=== PATIENT | female | born 1960 | race Caucasian/White ===

== ENCOUNTER 2024-01-13 13:57 | Outpatient (CLI) | payer OTHER, SELFPAY ==
--- NOTE | ~2024-01-13 | MR_ITS ---
EXAMINATION: MR abdomen wo/w con DATE: 01/13/2024 14:56 INDICATION: Other specified disorders of kidney. Left kidney cyst. Right abdominal pain. TECHNIQUE: Magnetic resonance imaging (MRI) of the abdomen was performed without and with 17 mL Multi Priti intravenous contrast. COMPARISON: None. FINDINGS: There is diffuse hepatic steatosis. There is a small sliding hiatal hernia. The gallbladder and splee n are normal. 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 The adrenal glands are normal. There is a 15 mm h emorrhagic cyst in left kidney. There are cysts in the kidneys measuring up to 6 mm on the left. Ther e is diverticulosis of the colon without evidence of diverticulitis. There are no dilated loops of geri wel. There are no pathologically enlarged lymph nodes. There is no free intraperitoneal fluid. IMPRESSION: 1. Benign cysts in the kidneys. Reviewed, dictated and finalized at location A.
== END 2024-01-13 13:58 ==
LOC: MICIMG 14:02
DX: N28.89 Other specified disorders of kidney and ureter (principal); N28.1 Cyst of kidney, acquired
CPT/HCPCS: 74183; A9577

== ENCOUNTER 2024-09-26 09:33 | Emergency (ER) | payer OTHER, SELFPAY ==
[2024-09-26 09:43] VITALS: BP 142/76; PULSE 57; RESP 16; TEMP 36.4; O2SAT 98
--- NOTE | 2024-09-26 11:04 | ED_ITS ---
HPI - General Adult General Chief complaint: Skin/Abscess/Foreign Body Stated complaint: Eye Pain/Rash Time Seen by Provider: 09/26/24 11:04 Source: patient Mode of arrival: ambulatory Limitations: no limitations History of Present Illness HPI narrative: 64-year-old female patient presents to the [facility] with complaints of bilateral eye redness, irritation and discharge. 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 Patient states she has been battling a slight cold/ allergies and has been taking Karen daily. Patient states she did try using some [id number] Zaditor eyedrops. Patient states she woke up this morning and feels like her eyes are more swollen, other sense to to the light, gritty, and did have some clear discharge. Denies fevers body aches or chills. Related Data Home Medications ?Medication ?Instructions ?Recorded ?Confirmed ?Last Taken ?Type Lactobacillus acidophilus 10 100 mmu cells PO DAILY 09/26/24 09/26/24 Unknown History billion cell capsule (NewFlora) albuterol sulfate 2.5 mg/3 mL 1.25 mg inhalation ONCE 09/26/24 09/26/24 Unknown History (0.083 %) solution for nebulization albuterol sulfate 90 mcg/actuation inhalation 09/26/24 Unknown History aerosol inhaler ascorbic acid (vitamin C) 500 mg mg PO 09/26/24 Unknown History capsule azelastine 137 mcg (0.1 %) nasal intranasal 09/26/24 Unknown History spray calcium 600 mg capsule mg PO 09/26/24 Unknown History cholecalciferol (vitamin D3) 25 25 mcg PO DAILY 09/26/24 09/26/24 Unknown History mcg (1,000 unit) capsule fexofenadine 180 mg tablet mg 09/26/24 Unknown History (Allergy Relief (fexofenadine)) fluticasone fur. 200 mcg-umeclid inhalation 09/26/24 Unknown History 62.5 mcg-vilant 25 mcg inhalat.powder (Trelegy Ellipta) fluticasone propionate 50 intranasal 09/26/24 Unknown History mcg/actuation nasal spray,suspension chloé root extract 15 mg chewable mg PO 09/26/24 Unknown History tablet (Advanced Herbals Chloé) propranolol 80 mg capsule,24 mg PO 09/26/24 Unknown History hr,extended release rosuvastatin 5 mg tablet mg 09/26/24 Unknown History turmeric 400 mg capsule 553 mg PO 09/26/24 Unknown History Allergies Allergy/AdvReac Type Severity Reaction Status Date / Time adhesive tape Allergy Mild Rash Verified 09/26/24 09:54 pseudoephedrine Allergy Mild Other Verified 09/26/24 09:54 meperidine AdvReac Mild Nausea Verified 09/26/24 09:54 Review of Systems Review of Systems: CONSTITUTIONAL: Denies fever, chills, or sweats. EYES: Denies visual changes, Positive bilateral eye redness, and clear discharge. ENT: Denies rhinorrhea, congestion, sore throat, or otalgia. CARDIOVASCULAR: Denies chest pain, palpitations, or edema. RESPIRATORY: Denies cough or dyspnea. GASTROINTESTINAL: Denies abdominal pain, nausea, vomiting, or diarrhea. GENITOURINARY: Denies dysuria or hematuria. SKIN: positive facial rash denies itching. MUSCULOSKELETAL: Denies back pain, joint pain, or myalgia. NEUROLOGIC: Denies headache, numbness, or weakness. PSYCHIATRIC: Denies anxiety or depression. [facility] Family History Family History Sibling Family history of thyroid disease Asthma Mother Hypertension Grandparent Family history of malignant neoplasm of bone Family history of malignant neoplasm of breast Other Diabetes mellitus Family history of malignant neoplasm of stomach Social History Social History Smoking status: Never smoker Alcohol intake: current Comments At the time of my signature I agree with nursing past medical history, surgical, social, and family history. There is no relevant family history pertinent to the presenting complaint. Exam Narrative: GENERAL: Well-appearing, well-nourished, and in no acute distress. HEAD: Normocephalic, atraumatic. EYES: PERRLA and EOM intact without limitation or complaint of pain, no periorbital soft tissue swelling ,no erythema, warmth or tenderness noted, no obvious deformity. No crusting or swelling.no active tearing or draining. positive photophobia. No nystagmus No FB or lesion on lid eversion. Corneas grossly clear, no obvious FB or hyphens/hypopyon. injection to bilateral sclera. Lids and lashes clear. ENT: Nares with erythema and edema noted bilaterally, no rhinorrhea or epistaxis. Mucous membranes moist. NECK: Supple. No lymphadenopathy CHEST: Clear to auscultation. No respiratory distress. HEART: Regular rate and rhythm. No murmur heard. Normal peripheral pulses. ABDOMEN: Soft, nontender, nondistended, normal active bowel sounds. EXTREMITIES: Normal range of motion. No edema. SKIN: Warm, dry, no obvious rash noted to the face. NEURO: No focal deficits. Alert and oriented x3. Course Course Level of Care: Express Care Visit Vital Signs Vital signs: Vital Signs Temperature 36.4 C L 09/26/24 09:43 Pulse Rate 57 L 09/26/24 09:43 Respiratory Rate 16 09/26/24 09:43 Blood Pressure 142/76 H 09/26/24 09:43 Pulse Oximetry 98 09/26/24 09:43 Temperature 36.4 C L 09/26/24 09:43 Pulse Rate 57 L 09/26/24 09:43 Respiratory Rate 16 09/26/24 09:43 Blood Pressure 142/76 H 09/26/24 09:43 Pulse Oximetry 98 09/26/24 09:43 Vital signs reviewed. The patient has been informed that they may have pre-hypertension or Hypertension based on a BP reading in the department. I recommend that the patient call the primary care provider listed on their discharge instructions or a physician of their choice this week to arrange follow up for further evaluation of possible pre-hypertension or Hypertension Medical Decision Making MDM Narrative Medical decision making narrative: Discussed with patient that we will go ahead and discharge her home with some antibiotic eyedrops for possible pinkeye. Patient should continue taking her daily antihistamine along with the Zaditor as needed. Also recommend some F lonase to help with any discharge behind the ears or eyes. Patient verbalized understanding denies any other questions or concerns at this time. Differential Diagnosis Differential Diagnosis: Differential diagnosis: Conjunctivitis, foreign body, corneal ulcer, Keratitis, dendritic lesions, corneal abrasion, very orbital infection, orbital cellulitis, orbital pain, acute narrow angle glaucoma, detached retina, central retinal artery occlusion, complete hyphema, vitreous hemorrhage, optic neuritis, globe disruption Vital Signs Vital Signs: Vital Signs Temperature 36.4 C L 09/26/24 09:43 Pulse Rate 57 L 09/26/24 09:43 Respiratory Rate 16 09/26/24 09:43 Blood Pressure 142/76 H 09/26/24 09:43 Pulse Oximetry 98 09/26/24 09:43 Temperature 36.4 C L 09/26/24 09:43 Pulse Rate 57 L 09/26/24 09:43 Respiratory Rate 16 09/26/24 09:43 Blood Pressure 142/76 H 09/26/24 09:43 Pulse Oximetry 98 09/26/24 09:43 Critical Care Time Critical Care Time Critical Care Time: No Discharge Plan Discharge Clinical Impression: Acute conjunctivitis, bilateral Patient Disposition: Home Condition: Stable Instructions: Antibiotic Form, Conjunctivitis (ED) Additional Instructions: Conjunctivitis is inflammation or irritation to the eye conjunctiva. This causes the white part of the eye to appear red or pink, which is why they call it pink eye . It can be caused by viruses, bacteria, allergies, injuries, chemicals or other eye diseases. Most pink eye (viral and bacterial) is contagious. It might affect the other eye and spread to other people. Everyone in the household should wash their hands often and not touch their eyes. Don't share towels, clothes, sheets, or blankets. After touching a pink eye , always wash your hands. Don't go to school until the pink eye is back to normal. Home Care: Gently clean any mucus from the eye with a soft, wet cloth. Everyone in the house should frequently wash their hands often with soap and water or hand trap puller and avoid sharing towels. Do not use contact lenses unless the eye doctor has approved this. Call your doctor or go to the ER if your condition worsens or: Eye pain is not better or getting worse. Vision is blurry. Infection is not improved in 2 days. Eyelid or face becomes red or swollen. Fever occurs. Patient Language: Turkish Prescriptions: New ofloxacin 0.3 % drops See Rx Instructions .ROUTE .COMPLEX Qty: 10 0RF Rx Instructions: put 1-2 drps into affected eye(s) every 2-4 h x 2 days, then 1-2 drps 4 times /day days 3-7 No Action propranolol 80 mg capsule,extended release 24 hr PO cholecalciferol (vitamin D3) 25 mcg (1,000 unit) capsule 25 mcg PO DAILY albuterol sulfate 90 mcg/actuation HFA aerosol inhaler INHALATION rosuvastatin 5 mg tablet Trelegy Ellipta 200-62.5-25 mcg blister with device INHALATION albuterol sulfate 2.5 mg /3 mL (0.083 %) solution for nebulization 1.25 mg inhalation ONCE azelastine 137 mcg (0.1 %) spray,non-aerosol INTRANASAL fluticasone propionate 50 mcg/actuation spray,suspension INTRANASAL calcium 600 mg capsule PO turmeric 400 mg capsule 553 mg PO Advanced Herbals Chloé 15 mg tablet,chewable PO ascorbic acid (vitamin C) 500 mg capsule PO NewFlora 10 billion cell capsule 100 mmu cells PO DAILY fexofenadine [Allergy Relief (fexofenadine)] 180 mg tablet Follow-up/Referrals: PHYSICIAN,KISS MIXER [Primary Care Provider] - Time of Disposition: 11:20
== END 2024-09-26 11:23 | disposition home or self-care (01) ==
PROVIDERS: Emergency Provider Nurse Practitioner Family
DX: H10.33 Unspecified acute conjunctivitis, bilateral (principal); Z79.899 Other long term (current) drug therapy
CPT/HCPCS: 99213; G0463